=== PATIENT | female | born 1995 | race Caucasian/White ===

== ENCOUNTER 2020-02-05 13:52 | Emergency (ER) | payer OTHER, SELFPAY ==
[2020-02-05 14:30] VITALS: BMI 21.3
--- NOTE | 2020-02-05 14:30 | HMH.EDUTC ---
[facility] [place] Clinical Impression: Viral syndrome, Exposure to COVID-19 virus Disposition: Home Health Service Condition on Discharge: Good Instructions: DI for Viral Syndrome, Preventing the Spread of Coronavirus Discharge Instructions Additional Instructions: Drink plenty of fluids. Take tylenol for pain or fever. Take the medications as directed. Follow up with your regular doctor. GO TO THE ER FOR ANY WORSENING SYMPTOMS FOLLOW THE DIRECTIONS ON THE COVID-19 HAND OUT THAT WE GAVE YOU REGARDING SELF-ISOLATION UNTIL YOU KNOW YOUR COVID-19 RESULTS Prescriptions: Ondansetron [Zofran 4mg ODT] 4 mg PO Q8HP PRN #20 tab.rapdis PRN Reason: Nausea Transmission Status: Received by [facility] Benzonatate [Tessalon Perle 100mg Cap] 100 mg PO TIDP PRN #30 cap PRN Reason: Cough Transmission Status: Received by [facility] Azithromycin [Z-Alhaji 250mg Tab*] 250 mg PO UD DOSE PK #6 tab Transmission Status: Received by [facility] Referrals: PCP,No [Primary Care Provider] - Forms: Work/School Release Time of Disposition: 15:00 Medical Decision Making - Medical Records Medical records reviewed: No: I reviewed the patient's medical records. - Stephon Inquiry Pt receiving controlled substance: No Vital Signs: 02/05/20 14:32 02/05/20 15:12 Temperature 98.4 F 98.4 F Temperature Source Oral Pulse Rate 101 H Pulse Rate [Right Brachial] 101 H Respiratory Rate 14 14 Blood Pressure 128/89 Blood Pressure [Right Arm] 128/89 Blood Pressure Mean [Right Arm] 102 Blood Pressure Source [Right Arm] Automatic Cuff Blood Pressure Position [Right Arm] Sitting 02 Sat by Pulse Oximetry 98 Oxygen Delivery Method Room Air - Lab Data Lab results reviewed: Yes: I reviewed the patient's lab results. Lab Results 02/05/20 14:38: Strep Scn Rapid Clinic Negative Orders (Tests/Meds): ORDERS Category Date Time Status SARS-CoV-2, BRITTANI Stat Lab 02/05/20 14:45 Received Strep Screen Confirmation Stat Micro 02/05/20 14:38 Received [facility] [place] HPI - General Stated complaint: Nausea, vomiting, cough, chills Time Seen by Provider: 02/05/20 14:30 - History of Present Illness Provider Complaint: She c/o fever (up to 103), cough, nausea, vomiting, and sore throat for the past 2 days. She states that she has felt very bad and had severe body aches too. She denies any known exposure to COVID-19, but her 's sister has been very sick with similar symptoms and she has been around her. - Related Data Previous Rx's Medication Instructions Recorded Azithromycin [Z-Alhaji 250mg Tab*] 250 mg PO UD DOSE PK #6 tab 02/05/20 Benzonatate [Tessalon Perle 100mg 100 mg PO TIDP PRN #30 cap 02/05/20 Cap] Ondansetron [Zofran 4mg ODT] 4 mg PO Q8HP PRN #20 tab.rapdis 02/05/20 Allergies Allergy/AdvReac Type Severity Reaction Status Date / Time ibuprofen [From MOTRIN] Allergy Mild Unverified 06/22/17 14:57 [facility] History - Hepatitis A Screen Attestation statement:: This patient has been screened for Hepatitis A risk factors. I have reviewed the patient's past medical history: Yes ROS Obtained: Yes All systems reviewed & no additional complaints - Constitutional Constitutional: Reports chills, Reports fever(s), Reports poor appetite, Reports malaise - Eyes Eyes: Denies eye discharge - ENT Ears, Nose, Mouth, and Throat: Reports as per HPI Physical Exam - General General appearance: alert, in no apparent distress - Head Head exam: atraumatic, normocephalic, normal inspection - Eye Eye exam: Present: normal appearance, PERRL, EOMI - ENT ENT exam: Present: normal exam, normal oropharynx, mucous membranes moist, TM's normal bilaterally, normal external ear exam - Neck Neck exam: Present: normal inspection, full ROM, trachea midline. Absent: meningismus, lymphadenopathy - Chest Chest inspection: Present: normal inspection, symmetric chest wall rise. A
[2020-02-05 14:32] VITALS: BP 128/89; PULSE 101; RESP 14; TEMP 36.9; O2SAT 98; BMI 21.3
[2020-02-05 15:12] VITALS: BP 128/89; PULSE 101; RESP 14; TEMP 36.9; O2SAT 98
[2020-02-05 20:01] LABS: UTC Strep Screen (Rapid) Negative (Negative)
[2020-02-07 13:10] LABS: Covid-19 Nasal PCR Sendout Lex Not Detected
== END 2020-02-05 15:18 | disposition home health service (06) ==
PROVIDERS: Emergency Provider Nurse Practitioner Family
DX: B34.9 Viral infection, unspecified (principal); Z03.818 Encounter for observation for suspected exposure to other biological agents ruled out
CPT/HCPCS: 87880; 99202; U0004

== ENCOUNTER 2020-08-25 15:10 | Emergency (ER) | payer OTHER, SELFPAY ==
[2020-08-25 15:20] VITALS: BP 135/77; PULSE 64; RESP 18; TEMP 37; O2SAT 98; BMI 20.9
--- NOTE | 2020-08-25 15:44 | HMH.EDUTC ---
[facility] [place] Disposition Clinical Impression: Sciatica Qualifiers: Laterality: right Qualified Code(s): M54.31 - Sciatica, right side Disposition: Home, Self-Care Condition on Discharge: Good Instructions: DI for Sciatica, Sciatica, Methylprednisolone Additional Instructions: Stretches may help with pain Warm soaks in warm water and epson salt may help with pain and achy like feeling in leg Take medication as prescribed Over the counter Tylenol may help with pain Return if needed Follow up with Family Doctor if no improvement or any worsening of symptoms Prescriptions: methylPREDNISolone [Medrol 4mg tab] 4 mg PO DIRECTED #21 tab Transmission Status[facility] Referrals: PCP,No [Primary Care Provider] - As needed Time of Disposition: 16:44 Medical Decision Making - Stephon Inquiry Pt receiving controlled substance: No Stephon was queried for this patient: No Vital Signs: 08/25/20 15:20 Temperature 98.6 F Temperature Source Oral Pulse Rate [Right Brachial] 64 Respiratory Rate 18 Blood Pressure [Right Arm] 135/77 Blood Pressure Mean [Right Arm] 96 Blood Pressure Source [Right Arm] Automatic Cuff Blood Pressure Position [Right Arm] Sitting 02 Sat by Pulse Oximetry 98 Oxygen Delivery Method Room Air Orders (Tests/Meds): ORDERS Category Date Time Status XR hip RT 2-3V w/pelvis Stat Exams 08/25/20 16:13 Taken - Radiology Data #1 Image(s): Hip Image Reviewed: Yes I reviewed the patient's radiology image w/the ED provider Preliminary Findings: No Fracture Seen Medical Decision Narrative: Due to location and description of pain suspect Sciatica Patient refused injection [facility] [place] HPI - General Stated complaint: r leg pain Time Seen by Provider: 08/25/20 15:44 Mode of Arrival: Ambulatory Source of Information: Patient Limitations: No Limitations Description of Symptoms (Recalled from Triage Doc. by RN): PATIENT C/O RIGHT HIP PAIN THAT RADIATES DOWN RIGHT LEG PAIN X 2 DAYS HEENT Symptoms (Recalled from RN notes): No Resp Symptoms (Recalled from RN notes): No Skin Symptoms (Recalled from RN notes): No MS Symptoms (Recalled from RN notes): Yes Functional Status (Recalled from RN notes): WNL - History of Present Illness Provider Complaint: Patient states that she has been having pain in her right hip that radiates down into her upper leg area States that it has continued to get worse over the last couple of days Denies falling and denies known injury but wants to have it xrayed to check States that she was accidently bumped in the hip with a knee a few days ago - Related Data Previous Rx's Medication Instructions Recorded Azithromycin [Z-Alhaji 250mg Tab*] 250 mg PO UD DOSE PK #6 tab 02/05/20 Benzonatate [Tessalon Perle 100mg 100 mg PO TIDP PRN #30 cap 02/05/20 Cap] Ondansetron [Zofran 4mg ODT] 4 mg PO Q8HP PRN #20 tab.rapdis 02/05/20 methylPREDNISolone [Medrol 4mg 4 mg PO DIRECTED #21 tab 08/25/20 tab] Allergies Allergy/AdvReac Type Severity Reaction Status Date / Time ibuprofen [From MOTRIN] Allergy Mild Verified 08/25/20 15:44 - Worker's Comp Is this a Worker's Comp case?: No [facility] History - Hepatitis A Screen Drug use history?: No High risk sexual behaviors?: No History of sexually transmitted infection?: No Currently employed?: No Childcare worker?: No Do you have indoor plumbing?: Yes Do you have electricity?: Yes Attestation statement:: This patient has been screened for Hepatitis A risk factors. I have reviewed the patient's past medical history: Yes - Social History Smoking Status: Current every day smoker Tobacco Type: cigarettes # Packs/Day (cigarettes): 1 Alcohol Intake: never Occupational Status: other ROS Obtained: Yes All systems reviewed & no additional complaints, Yes Systems reviewed as appropriate & no additional complaints - Constitutional Constitutional: Reports system reviewed and no additional comp
--- NOTE | 2020-08-25 16:13 | XR_ITS ---
PROCEDURE: XR HIP RT 2-3V W/PELVIS CLINICAL INDICATION: PAIN COMPARISON: No exams were available for comparison FINDINGS: No fracture or dislocation is evident. No significant degenerative change. No lytic or blastic change. Unremarkable soft tissues. The SI joints and symphysis pubis appear normal. IMPRESSION: No acute findings seen Dictated by: Dr. Nelson Pacheco MD 08/25/2020 19:21 Dr. Nelson Pacheco MD in [place] 08/25/2020 19:21
[2020-08-25 16:41] VITALS: BP 135/77; PULSE 64; RESP 18; TEMP 37; O2SAT 98
== END 2020-08-25 16:54 | disposition home or self-care (01) ==
PROVIDERS: Emergency Provider Nurse Practitioner
DX: M54.31 Sciatica, right side (principal); F17.210 Nicotine dependence, cigarettes, uncomplicated
CPT/HCPCS: 73502; 99202; G0463